=== PATIENT | male | born 1995 | race Caucasian/White ===

== ENCOUNTER 2023-11-06 23:57 | Emergency (ER) | payer OTHER, SELFPAY ==
[2023-11-07 00:03] VITALS: BP 151/98; PULSE 88; RESP 18; TEMP 36.5; O2SAT 100
--- NOTE | 2023-11-07 00:15 | ED_ITS ---
HPI - Dental/Oral General Chief complaint: Dental/Oral Stated complaint: dental pain Time Seen by Provider: 11/06/23 23:58 Source: patient Mode of arrival: walk-in Limitations: no limitations History of Present Illness HPI Narrative: 28-year-old male presents to ED for pain to tooth #16. He has been having this issue for a month and a half and he has an appointment with the dentist tomorrow which she will keep. He came in for something for pain. No difficulty breathing or swallowing and he has not had a fever. It is aching and continuous and moderate. Related Data Previous Rx's ?Medication ?Instructions ?Recorded acetaminophen 300 mg-codeine 30 mg 1 tab PO Q6H PRN pain 5 days #20 11/07/23 tablet tabs penicillin V potassium 250 mg 250 mg PO QID 10 days #40 tabs 11/07/23 tablet Allergies Allergy/AdvReac Type Severity Reaction Status Date / Time No Known Drug Allergies Allergy Verified 11/07/23 00:02 Review of Systems ROS Narrative A ten point review of systems is negative except as noted above. Exam Narrative Exam Narrative: Nurses note and vital signs reviewed and patient is not hypoxic. General: The patient appears well and in no apparent distress. Patient is resting comfortably on cart. Skin: Warm, dry, no pallor noted. There is no rash noted. Head: Normocephalic, atraumatic Eye: Normal conjunctiva, no drainage Ears, Nose, Mouth, and Throat: oral mucosa is moist. Nares patent. There is no bleeding or pus present. No swelling to his face or any erythema. There is no gingival swelling or erythema. Cardiovascular: Regular Rate and Rhythm Respiratory: Patient is in no distress, no accessory muscle use, lungs are clear to auscultation, no wheezing, rales or rhonchi Back: non-tender GI: Soft and nontender Musculoskeletal: No joint swelling Neurological: A&O, normal speech Psychiatric: Cooperative Constitutional Vital Signs, click to edit/add: Last Vital Signs Temp 97.7 F 11/07/23 00:03 Pulse 88 11/07/23 00:03 Resp 18 11/07/23 00:03 BP 151/98 H 11/07/23 00:03 Pulse Ox 100 11/07/23 00:03 O2 Del Method Room Air 11/07/23 00:03 Course Vital Signs Vital signs: Vital Signs Temperature 97.7 F 11/07/23 00:03 Pulse Rate 88 11/07/23 00:03 Respiratory Rate 18 11/07/23 00:03 Blood Pressure 151/98 H 11/07/23 00:03 Pulse Oximetry 100 11/07/23 00:03 Oxygen Delivery Method Room Air 11/07/23 00:03 Temperature 97.7 F 11/07/23 00:03 Pulse Rate 88 11/07/23 00:03 Respiratory Rate 18 11/07/23 00:03 Blood Pressure 151/98 H 11/07/23 00:03 Pulse Oximetry 100 11/07/23 00:03 Oxygen Delivery Method Room Air 11/07/23 00:03 Discharge Plan Discharge Stand Alone Forms: Portal Instructions Chief Complaint: Dental/Oral Clinical Impression: Toothache Patient Disposition: Home, Self-Care Time of Disposition Decision: 00:13 Condition: Good Mode of Transportation: Private Vehicle Prescriptions / Home Meds: New acetaminophen-codeine 300-30 mg tablet 1 tab PO Q6H PRN (Reason: pain) 5 Days Qty: 20 0RF penicillin V potassium 250 mg tablet 250 mg PO QID 10 Days Qty: 40 0RF Print Language: Upper Sorbian Instructions: Toothache (ED) Additional Instructions: See your dentist at your appointment tomorrow. Referrals: Physician,Non-Staff, MD [Primary Care Provider] - 1 week
[2023-11-07] MEDS: PENICILLIN V POTASSIUM 250 MG TABLET 500 MG PO (00:28)
[2023-11-07] MEDS: ACETAMINOPHEN 300 MG/ 30 MG CODEINE TABLET 1 TAB PO (00:28)
[2023-11-07 00:29] VITALS: PULSE 87; RESP 18; O2SAT 98
== END 2023-11-07 00:29 | disposition home or self-care (01) ==
PROVIDERS: Emergency Provider Emergency Medicine
DX: K08.89 Other specified disorders of teeth and supporting structures (principal)
CPT/HCPCS: 99283